=== PATIENT | female | born 1980 | race Caucasian/White ===

== ENCOUNTER → 2018-06-25 11:31 | Outpatient (CLI) | payer OTHER, SELFPAY | PROVIDERS: PCP Internal Medicine | DX: Z23 Encounter for immunization (principal) | CPT/HCPCS: 90471; 90686 ==

== ENCOUNTER → 2018-07-18 10:14 | Outpatient (CLI) | payer OTHER, SELFPAY | PROVIDERS: PCP Internal Medicine; Visit Provider Physician Assistant | DX: N39.0 Urinary tract infection, site not specified (principal) | CPT/HCPCS: 87086 ==

== ENCOUNTER → 2018-09-07 07:11 | Outpatient (CLI) | payer OTHER, SELFPAY ==
[2018-09-07 09:18] LABS: Add Manual Diff / Slide Review NO; Basophils Percent Auto 0.3 % (0-2); Eosinophils Percent Auto 1.5 % (2-4); Hematocrit 38.1 % (36-46); Hemoglobin 13.5 g/dL (12.0-16.0); Lymphocytes Percent Auto 28.2 % (25-40); Mean Corpuscular HGB Conc 35.5 % (30-36); Mean Corpuscular Hemoglobin 32.5 PG (26-34); Mean Corpuscular Volume 91.5 fL (80-100); Monocytes Percent Auto 8.7 % (3-14); Neutrophils Absolute Auto 3200 /uL (3000-5900); Neutrophils Percent Auto 61.3 % (50-75); Platelet Count 287 X10^3/uL (150-400); Red Blood Cell Count 4.16 X10^6/uL (4.0-5.2); Red Cell Distribution Width 12.5 % (11.6-14.8); White Blood Cell Count 5.2 X10^3/uL (4.5-11.0)
[2018-09-07 09:23] LABS: Alanine Aminotransferase 22 IU/L (9-52); Albumin 4.4 g/dL (3.5-5.0); Albumin Globulin Ratio 1.6 (1.0-2.8); Alkaline Phosphatase 58 U/L (38-126); Aspartate Aminotransferase 16 IU/L (14-36); BUN Creatinine Ratio 21.4 (6-22); Bilirubin Total 1.8 mg/dL (0.2-1.3); Blood Urea Nitrogen 15 mg/dL (7-17); Calcium 9.1 mg/dL (8.4-10.2); Carbon Dioxide 24 mmol/L (22-32); Chloride 105 mmol/L (98-107); Cholesterol 172 mg/dL (140-199); Estimated Glomerular Filt Rate > 60.0 mL/min (>60); Globulin 2.7 g/dL (1.7-4.1); Glucose 80 mg/dL (70-100); HDL Cholesterol 45 mg/dL (40-60); HEMOLYSIS < 15 (0-50); LDL Cholesterol Calculated 114 mg/dL (<100); Potassium 3.8 mmol/L (3.4-5.1); Sodium 143 mmol/L (137-145); Total Protein 7.1 g/dL (6.3-8.2); Triglycerides 65 mg/dL (35-150)
[2018-09-07 10:14] LABS: Thyroid Stimulating Hormone 1.35 uIU/mL (0.47-4.68)
== END ==
PROVIDERS: PCP Internal Medicine; Visit Provider Internal Medicine
DX: Z13.0 Encounter for screening for diseases of the blood and blood-forming organs and certain disorders involving the immune mechanism (principal); Z13.220 Encounter for screening for lipoid disorders; Z13.29 Encounter for screening for other suspected endocrine disorder
CPT/HCPCS: 36415; 80053; 80061; 84443; 85025

== ENCOUNTER → 2019-01-04 10:38 | Outpatient (REF) | payer OTHER, SELFPAY ==
[2019-01-04 10:58] LABS: Influenza A and B by PCR Rapid Negative (Negative)
== END ==
LOC: LAB 10:38
PROVIDERS: PCP Internal Medicine; Visit Provider Family Medicine
DX: Z11.59 Encounter for screening for other viral diseases (principal)
CPT/HCPCS: 87400

== ENCOUNTER → 2019-01-28 09:11 | Outpatient (REF) | payer SELFPAY ==
[2019-01-30 14:35] LABS: Hepatitis B Surf AB Imm QUANT > 999 mIU/mL (> 9)
== END ==
LOC: LAB 09:11
PROVIDERS: PCP Internal Medicine
DX: R76.8 Other specified abnormal immunological findings in serum (principal)
CPT/HCPCS: 36415; 86317

== ENCOUNTER → 2019-05-03 08:02 | Outpatient (CLI) | payer OTHER, SELFPAY ==
--- NOTE | 2019-05-03 | DI.US.S_ITS ---
PROCEDURE: US PELVIC COMPLETE INDICATIONS: PELVIC PAIN TECHNIQUE: Real-time scanning was performed of the pelvic organs, with image documentation. Additional endovaginal scanning was necessary due to incomplete visualization of the adnexal and endometrial structures by transabdominal scanning. COMPARISON: None. FINDINGS: Transabdominal scanning: Limited scanning through the kidneys shows no hydronephrosis. No pathologic free abdominal or pelvic fluid. Endovaginal scanning: Uterus: Uterus is normal in size at 9.4 x 5.2 x 6.3 cm. The endometrium measures 3.1 mm in combined thickness. Posterior intramural fibroid measuring 1.4 x 1.5 x 1.7 cm. Ovaries: Left ovary is normal in size and appearance measuring 2.4 x 1.9 x 2.1 cm. Right ovary is enlarged measuring 5.1 x 3.0 x 3.2 cm and contains a complex, or dominant isoechoic mass centrally measuring 2.1 x 1.5 x 1.6 cm. IMPRESSION: 1. Complex right ovarian mass measuring up to 2.1 cm likely representing an evolving hemorrhagic cyst. Recommend short-term followup pelvic ultrasound in 6-12 weeks to document temporal resolution. 2. 17 mm intramural fibroid. Dictated by: Rio LINOA Interpreted: Ayesha Boothe MD on 05/03/2019 at 9:25 Approved by: Ayesha Boothe MD, PhD on 05/03/2019 at 14:20
== END ==
PROVIDERS: PCP Internal Medicine; Visit Provider Family Medicine
DX: D25.1 Intramural leiomyoma of uterus (principal); N83.8 Other noninflammatory disorders of ovary, fallopian tube and broad ligament; R10.2 Pelvic and perineal pain
CPT/HCPCS: 76830; 76856

== ENCOUNTER → 2019-08-13 09:32 | Outpatient (CLI) | payer OTHER, SELFPAY ==
--- NOTE | 2019-08-13 | DI.US.S_ITS ---
PROCEDURE: US PELVIC COMPLETE INDICATIONS: RIGHT OVARIAN CYST TECHNIQUE: Real-time scanning was performed of the pelvic organs, with image documentation. Additional endovaginal scanning was necessary due to incomplete visualization of the adnexal and endometrial structures by transabdominal scanning. COMPARISON: [facility], , US PELVIC COMPLETE, 05/03/2019, 8:12. FINDINGS: Transabdominal scanning: Limited scanning through the kidneys shows no hydronephrosis. No pathologic free abdominal or pelvic fluid. Endovaginal scanning: Uterus: Uterus is normal in size at 9.6 x 6.1 x 4.7 cm. The endometrium measures 11.0 mm in combined thickness. Posterior intramural fibroid redemonstrated measuring up to 18 mm. Ovaries: Ovaries normal in size measuring 3.3 x 3.1 x 2.6 cm on the right and 3.5 x 2.1 x 2.2 cm on the left. Homogeneous, complex mass associated with the right ovary not significantly changed measuring 2.6 x 1.7 x 1.7 cm. Doppler assessment demonstrating no vascularity. Simple left ovarian cyst measuring 17 mm IMPRESSION: 1. No significant change in in appearance or size of homogeneous complex mass involving the right ovary which may represent an endometrioma; however differential would include both benign and malignant etiologies. Recommend gynecologic consultation and continued sonographic surveillance. Dictated by: Rio SMITH Interpreted: Loyda Caba MD on 08/13/2019 at 10:19 Approved by: Loyda Caba M.D. on 08/13/2019 at 12:04
== END ==
PROVIDERS: PCP Internal Medicine; Visit Provider Internal Medicine
DX: N83.9 Noninflammatory disorder of ovary, fallopian tube and broad ligament, unspecified (principal); N83.292 Other ovarian cyst, left side; D25.1 Intramural leiomyoma of uterus
CPT/HCPCS: 76830; 76856

== ENCOUNTER → 2019-09-19 09:48 | Outpatient (CLI) | payer OTHER, SELFPAY | PROVIDERS: PCP Internal Medicine; Visit Provider Physician Assistant | DX: R30.0 Dysuria (principal) | CPT/HCPCS: 87086 ==

== ENCOUNTER → 2019-09-25 11:11 | Outpatient (CLI) | payer OTHER, SELFPAY ==
[2019-09-25 13:12] LABS: Cancer Antigen 125 13 U/mL (0-35)
== END ==
PROVIDERS: PCP Internal Medicine; Visit Provider Obstetrics & Gynecology
DX: N83.8 Other noninflammatory disorders of ovary, fallopian tube and broad ligament (principal)
CPT/HCPCS: 36415; 86304

== ENCOUNTER 2019-10-07 10:07 | Day surgery (SDC) | payer OTHER, SELFPAY ==
[2019-09-27 12:33] VITALS: BMI 26.0
[2019-10-07] VITALS (13 sets, daily range): BP systolic 99–113; BP diastolic 55–70; PULSE 65–96; RESP 12–18; TEMP 36.4–36.6; O2SAT 96–100; BMI 26.6
--- NOTE | 2019-10-07 | PATH_ITS ---
[facility] Accession Number: [id number] . 01 Material submitted: . uterine adnexa - RIGHT OVARY AND FALLOPIAN TUBE; LEFT FALLOPIAN TUBE . 02 Diagnosis: Right Ovary and Fallopian Tube and Left Fallopian Tube, Right Salpingo-oophorectomy and Left Salpingectomy: Right ovary with involvement by endometriosis and with two benign mucinous cysts (2 mm and 5 mm), a benign serous cyst (9 mm) and multiple benign follicular cysts (up to 10 mm in greatest dimension). Right fallopian tube with no significant histomorphologic abnormality; negative for atypia or malignancy. Left fallopian tube with no significant histomorphologic abnormality; negative for atypia or malignancy. [facility] 10/10/2019 1314 Local . 02 Electronically signed: . Dariana Santos MD, Pathologist NPI- [id number] . 01 Gross description: . Received in formalin, labeled right ovary and tube; left tube, is an ovary (3.7 x 3.3 x 1.7 cm) with an attached fimbriated fallopian tube (length-5.5 cm, diameter-0.4 cm) and a separate fimbriated fallopian tube (length-5.3 cm, diameter-0.5 cm). The ovary has robin-yellow smooth shiny flat serosa and robin-white solid cystic parenchyma with corpus albicans and corpus luteum identified. The cavities (0.1 cm-1.0 cm) contain red-brown paste-like material and clear colorless fluid. The fallopian tubes have robin-purple smooth shiny serosa and robin unremarkable lumens. Section code: (A1) ovary, international sales representative serial section; (A2) attached fallopian tube, international sales representative serial sections; (A3) attached fimbria, bivalved, entirely submitted; (A4) separate fallopian tube, international sales representative serial sections; (A5) separate fimbria, bivalved, entirely submitted. ([id number]) /MRV 10/08/2019 1350 Local . 02 Pathologist provided ICD-10: N83.8 . 02 CPT . 448082 Performed at: [facility] [address] [address], [place], [place] [id number] MD Deshaun River MD Phone: [phone] Performed at: [address] [facility] [id number] [place] [id number] MD Cathryn Patterson MD Phone: [phone]
[2019-10-07] MEDS: LACTATED RINGERS 1,000 ML 100 ML IV ×2 (11:00→13:41)
--- NOTE | 2019-10-07 12:50 | PM.PREOP ---
Pre-operative Note Interval Note History & Physical reviewed/Exam performed by Physician: Yes Changes to H&P: No
--- NOTE | 2019-10-07 13:23 | SUR.OPER ---
Lithotomy on padded OR bed, head on pillow, arms secured on padded arm boards at <90 degrees abduction. Legs secured in padded yellow fins stirrups.
[2019-10-07] MEDS: BUPIVACAINE 0.5% W/ EPI (PF) 30 ML VIAL INJ (13:30)
--- NOTE | 2019-10-07 14:40 | SUR.PHASEI ---
Patient awakens to voice. Tolerates po. VSS. Denies pain and nausea.
--- NOTE | 2019-10-08 05:05 | PM.HP.1 ---
History of Present Illness History of Present Illness Date Patient Seen: 10/07/19 Time Patient Seen: 12:00 Chief complaint: [id number] Narrative: Patient is a 39-year-old 2 para 2 who presents for a laparoscopic bilateral salpingectomy, excision of right ovarian mass, possible right oophorectomy, possible fulguration of endometriosis This is being done due to a right ovarian mass, menorrhagia, and dysmenorrhea Patient History Medical History (Updated 10/08/19 @ 05:07 by Jyoti Lopes MD) Anemia (Acute) Dysmenorrhea (Acute) Menorrhagia (Acute) Otitis media, serous, TM rupture (Acute) UTI (urinary tract infection) (Acute) Surgical History (Updated 09/27/19 @ 12:42 by Renetta Feliciano RN) History of surgery (Acute ~08/2005) Hx of appendectomy (Acute ~2006) Status post appendectomy Family & Social History Family History (Updated 08/16/15 @ 00:00 by Conversion Provider) Father Cancer Grandfather Heart disease Grandmother Heart disease Mother Age: 71 Diabetes mellitus Hypertension High cholesterol Mental health problem Grandfather Heart disease Grandmother Stroke Social History: household members spouse Tobacco & Substance use: Smoking Status Never smoker alcohol intake current alcohol intake frequency a few times a week Substance Use Type does not use Meds Home Medications and Allergies Home Medications Medication Instructions Recorded Confirmed Type Vitamin D3 4,000 u PO DAILY #0 09/28/16 10/07/19 History ketoconazole 2 % topical cream 1 applictn TOP BID #60 gram 09/11/18 10/07/19 Rx escitalopram oxalate 5 mg tablet 5 mg PO DAILY 09/19/19 10/07/19 History omega-3 fatty acids PO 09/25/19 09/25/19 History tramadol 50 mg PO Q4H PRN #14 tab 10/07/19 Rx Allergies Allergy/AdvReac Type Severity Reaction Status Date / Time latex [LATEX] Allergy Mild Rash Verified 10/07/19 10:54 oxycodone [From PERCOCET] Allergy Mild hives, Verified 10/07/19 10:54 itching Sulfa (Sulfonamide Allergy Mild Rash Verified 10/07/19 13:35 Antibiotics) Exam Vital Signs (past 8 hours): Oxygen Delivery Method Room Air Narrative Exam Narrative: HEENT: No thyromegaly, no anterior cervical or supraclavicular lymphadenopathy. Lungs:Clear to auscultation bilaterally, no wheezes. Cardiovascular: Regular rate and rhythm, no murmurs, rubs, or gallops. Abdomen: No scars. No hepatosplenomegaly. No masses palpable. External genitalia: Normal Vagina: Normal Cervix: Normal Bimanual exam: 8 Week size uterus. Mobile. Right adnexal tenderness. Bilateral uterus sacral tenderness. Rectal: No masses. Assessment & Plan Assessment and plan (1) Menorrhagia: Current visit: No Status: Acute (2) Dysmenorrhea: Current visit: No Status: Acute (3) Ovarian mass, right: Current visit: No Status: Deleted (4) Ovarian mass, right: Current visit: No Status: Acute Assessment & Plan narrative: Assessment: 39-year-old 2 para 2 with a right ovarian mass, dysmenorrhea, and menorrhagia Plan: Laparoscopic bilateral salpingectomy, excision of right ovarian mass, possible removal of right ovary, possible fulguration of endometriosis The risks, benefits, and alternatives to the procedure were explained to the patient. The risks including bleeding, infection, injury to the bowel, bladder, or ureters. She also understands that there is a risk of an open procedure. She understands these risks and agrees to proceed. A full par Q was held and consent form was signed. Time Spent With Patient Time with patient: 15-24 minutes
--- NOTE | 2019-10-08 05:08 | PM.GYNOP.1 ---
Operative Date/Time/Diagnoses Date of procedure: 10/07/19 Time of procedure: 14:00 Pre-op diagnosis: Menorrhagia Dysmenorrhea Right ovarian mass Post-op diagnosis: same Procedure & Clinicians Procedure: Procedures Operation Date: 10/07/19 12:15 Actual Procedures Side Surgeon p Laparoscopic Right Salpingectomy oophorectomy; left salpingectomy & fulguration of endometriosis Jyoti Lopes MD Indications: Dysmenorrhea Menorrhagia Right ovarian mass Surgeon: Jyoti Lopes Anesthesia Type: General Operative Notes Findings: Significant endometriosis of the right ovary including an endometrioma. Endometriosis of the left ovary, anterior cul-de-sac, posterior cul-de-sac, bilateral ovarian fossa, and anterior bowel, and right cornua of the uterus. Normal liver Appendix previously removed Normal uterus Closure Type: primary Specimen(s): left tube and right tube & ovary Estimated blood loss (mL): 5 Blood products transfused: none Procedure in detail: After informed consent was obtained, the patient was taken to the operating room where she was placed in the dorsal supine position. After adequate general endotracheal anesthesia was achieved, she was placed in the dorsal lithotomy position, and prepped and draped in the usual sterile fashion. A bivalve speculum was placed into the vagina and the anterior lip of the cervix was grasped with a single-tooth tenaculum. The cervical os was sequentially dilated until the Zumi uterine manipulator could pass easily into the endometrial cavity. The single-tooth tenaculum was removed from the anterior lip of the cervix. The bivalve speculum was removed from the vagina. Attention was then turned to the abdomen where 6 cc of 0.5% Marcaine with epinephrine were injected in the umbilical fold. A 5 mm incision was made. The Veress needle was placed into the peritoneal cavity, and its placement confirmed by aspiration drop test. The abdominal cavity was insufflated with 3.8 L of CO2. The Veress needle was removed, and a 5 mm trocar was placed without difficulty. Two other 5 mm incisions were made midway between the pubic symphysis and umbilicus, 4 cm lateral to the midline, after 6 cc of 0.5% Marcaine with epinephrine were injected. Two 5 mm trocars were placed under direct visualization. The probe was used to identify the anterior posterior cul-de-sacs, the bilateral ovarian fossa, and the liver. The spoon cautery was used to cauterize approximately 100 endometriosis lesions of the anterior and posterior cul-de-sac, bilateral ovarian fossa, and left ovary. A decision was made due to the degree of endometriosis on the right ovary to remove it. The right ovary and tube were grasped with an atraumatic grasper. Using the PlasmaKinetic was settings of 40 w the infundibulopelvic ligament was cauterized and cut as was the utero-ovarian ligament. The tube was amputated at the cornua of the uterus. The tube and ovary were placed into the anterior cul-de-sac. The left tube was grasped with an atraumatic grasper. Using the PlasmaKinetic was settings at 40 w the mesosalpinx was cauterized and cut all the way down to the cornua of the uterus. The tube was amputated at the cornua. The tube was placed into the anterior cul-de-sac. Hemostasis was achieved. 6 cc of 0.5% Marcaine with epinephrine were injected above the pubic symphysis. A 1 cm incision was made. The 11 mm trocar was placed into the peritoneal cavity. The small endobag was placed through the suprapubic trocar. The right ovary and tube and left tube were placed into the bag. The trocar was removed. A Marty was used to slightly extend the fascial incision. The bag was removed with tubes and right ovary inside. The pelvis was inspected and there was no bleeding noted. The instruments were removed from the abdomen. The CO2 was allowed to escape. The suprapubic incision was closed on the fascia with 0 Vicryl. All of the incisions were closed with 4 0 Biosyn in a subcuticular fashion. Steri-Strips, 2 x 2, and op site were placed. The Zumi uterine manipulator was removed from the uterus. Sponge, lap, and instrument counts were correct x2. The patient tolerated the procedure well, and was taken to PACU in stable condition. Complications: none Post-operative Condition: stable Disposition: PACU Plan for aftercare: Home after recovery
== END 2019-10-07 15:57 | disposition home or self-care (01) ==
PROVIDERS: PCP Internal Medicine; Visit Provider Obstetrics & Gynecology
PROC: (CPT 58661; principal; 2019-10-07 12:15)
DX: N83.8 Other noninflammatory disorders of ovary, fallopian tube and broad ligament (principal); F41.9 Anxiety disorder, unspecified; N83.291 Other ovarian cyst, right side; N83.201 Unspecified ovarian cyst, right side; N83.01 Follicular cyst of right ovary
CPT/HCPCS: 58661; 58662; J1100; J1885; J2250; J2405; J2704; J3010

== ENCOUNTER → 2020-01-15 11:00 | Oncology outpatient (ONC) | payer OTHER, SELFPAY ==
[2019-10-16 11:06] VITALS: BP 109/68; PULSE 68; RESP 16; TEMP 36.7; O2SAT 100
[2019-10-16] MEDS: LEUPROLIDE DEPOT 11.25 MG SYR IM (11:11)
[2020-01-15] MEDS: LEUPROLIDE DEPOT 11.25 MG SYR IM (11:33)
[2020-01-15 11:53] VITALS: BP 102/67; PULSE 78; RESP 18; TEMP 36.6; O2SAT 96
== END ==
PROVIDERS: PCP Internal Medicine; Visit Provider Obstetrics & Gynecology
DX: N80.9 Endometriosis, unspecified (principal)
CPT/HCPCS: 96372; J1950

== ENCOUNTER → 2020-04-15 13:53 | Outpatient (CLI) | payer OTHER, SELFPAY ==
[2020-04-16 20:01] LABS: COVID19 Sendout Not Detected (Not Detect)
== END ==
PROVIDERS: PCP Internal Medicine; Visit Provider Physician Assistant
DX: Z03.818 Encounter for observation for suspected exposure to other biological agents ruled out (principal)
CPT/HCPCS: 87635

== ENCOUNTER → 2020-07-21 07:41 | Outpatient (CLI) | payer OTHER, SELFPAY | PROVIDERS: PCP Internal Medicine; Referring Provider Internal Medicine; Visit Provider Internal Medicine | DX: Z23 Encounter for immunization (principal) | CPT/HCPCS: 90471; 90686 ==

== ENCOUNTER → 2020-08-18 10:20 | Outpatient (CLI) | payer OTHER, SELFPAY ==
[2020-08-18 11:36] LABS: COVID19 -Nasal RAPID Negative (Negative)
== END ==
PROVIDERS: PCP Internal Medicine; Visit Provider Surgery
DX: Z11.59 Encounter for screening for other viral diseases (principal)
CPT/HCPCS: 87635; C9803

== ENCOUNTER 2020-08-19 15:21 | Day surgery (SDC) | payer OTHER, SELFPAY ==
[2020-08-13 12:30] VITALS: BMI 26.6
[2020-08-19] VITALS (7 sets, daily range): BP systolic 94–109; BP diastolic 51–69; PULSE 65–106; RESP 10–19; TEMP 36.5–36.6; O2SAT 98–100; BMI 27.4
--- NOTE | 2020-08-19 | PATH_ITS ---
[facility] Accession Number: [id number] . 01 Material submitted: . hemorrhoids - HEMORRHOIDS . 01 Clinical history: . SDC . 02 Diagnosis: Hemorrhoids, Biopsy: Polypoid anorectal mucosa with prominent dilated vessels, consistent with hemorrhoidal tissue. No evidence of neoplasia. MRV 08/24/2020 1244 Local . 02 Electronically signed: . Cathryn Patterson MD, Pathologist NPI- [id number] . 01 Gross description: . HEMORRHOIDS: Received in formalin are multiple fragment of robin soft tissue measuring 2.0 x 1.0 x 1.0 cm in aggregate. Tissue is inked. Specimen is sectioned and submitted in phone representative sections in 1 cassette. /SHAVONNE 08/20/2020 0146 Local . 02 Pathologist provided ICD-10: K64.9 . 02 CPT . 283291 Performed at: 01 [facility] [address], [place], [place] [id number] MD Deshaun River MD Phone: [phone] Performed at: 02 [facility] [address] [place], [place] [id number] MD Cathryn Patterson MD Phone: [phone]
[2020-08-19] MEDS: LACTATED RINGERS 1,000 ML 100 ML IV (15:58)
--- NOTE | 2020-08-19 16:33 | PM.PREOP ---
Pre-operative Note COVID-19 COVID-19 status: Negative Result date/Date tested (Pos, Neg/Pending): 08/18/20 Interval Note History & Physical reviewed/Exam performed by Physician: Yes Changes to H&P: No
[2020-08-19] MEDS: CEFAZOLIN 2 GM/100 ML FROZ.PIGGY IV (16:40)
--- NOTE | 2020-08-19 16:59 | SUR.OPER ---
Prone on padded OR bed, head in foam head support, gel chest rolls, gel pad under knees, pillow under lower legs, toes free of pressure, arms secured on padded arm boards at <90 degrees abduction. Safety belt at thigh.
[2020-08-19] MEDS: metroNIDAZOLE 500 MG/100 ML PIGGYBACK 100 MG IV ×2 (17:05→17:18)
[2020-08-19] MEDS: BUPIVACAINE LIPOSOME 266 MG/20 ML VIAL INJ (17:20)
[2020-08-19] MEDS: BUPIVACAINE 0.25% W/ EPI (PF) 10 ML VIAL 20 ML INJ (17:23)
--- NOTE | 2020-08-19 17:35 | PM.OP.1 ---
Operative Date/Time/Diagnoses Date of procedure: 08/19/20 Time of procedure: 17:35 Pre-op diagnosis: Hemorrhoids, high anal tone, anal pain Post-op diagnosis: other (circumferential internal and external hemorrhoids) Procedure & Clinicians Procedure: Hemorrhoidectomy Internal lateral sphincterotomy Same procedure as scheduled: Yes Indications: Circumferential hemorrhoids, anal pain Surgeon: Estefani Mata Anesthesia Type: General Operative Notes Findings: Circumferential hemorrhoids, high anal sphincter tone Specimen(s): other (Hemorrhoids) Estimated Blood Loss (mL): 1 Procedure in detail: The patient was brought into the OR. Sequential compression devices were placed on both legs and turned on. Appropriate perioperative antibiotics were given. General anesthesia was induced and the patient was intubated. The patient was turned prone onto the OR table. All bony prominences were padded. The buttocks were taped apart. The perianal area was prepped and draped in sterile fashion with betadine prep. Surgical timeout was conducted. 0.25% Marcaine with epi was used to perform a four quadrant anal block using 5mL per quadrant for a total of 20mL. On external exam there were [moderate circumferential external hemorrhoids seen with very friable anal mucosa and anoderm. With copious lubricant, an anorectal exam was performed. Moderate internal hemorrhoids were seen circumferentially associated with each external hemorrhoid. The right posterior external hemorrhoid was grasped and divided at its base using Harmonic scalpel. Dissection was carried down to the internal hemorrhoid component, proximal to the dentate line and a Harmonic scalpel was used to divide it, with care to avoid the sphincter muscle. The entire hemorrhoidal column was divided including both the internal and external hemorrhoid. It was passed off the table. Good hemostasis was achieved. The right anterior external hemorrhoid was grasped and divided at its base using Harmonic scalpel. Dissection was carried down to the internal hemorrhoid component, proximal to the dentate line and a Harmonic scalpel was used to divide it, with care to avoid the sphincter muscle. The entire hemorrhoidal column was divided including both the internal and external hemorrhoid. It was passed off the table. Good hemostasis was achieved. Care was taken to leave plenty of anoderm between each hemorrhoidal column. The left lateral external hemorrhoidThe was grasped and divided at its base using Harmonic scalpel. Dissection was carried down to the internal hemorrhoid component, proximal to the dentate line and a Harmonic scalpel was used to divide it, with care to avoid the sphincter muscle. The entire hemorrhoidal column was divided including both the internal and external hemorrhoid. It was passed off the table. Good hemostasis was achieved. Care was taken to leave plenty of anoderm between each hemorrhoidal column. Attention was then turned to the left lateral anoderm at 9:00 position. A small skin incision was made overlying the anal sphincter muscle. The skin was opened and dissection was carried down to the anal sphincter using a mosquito clamp. The internal sphincter was located and 3mm of muscle was divided, consistent with the length of the fissure. The anoderm was closed with 4-0 chromic suture. 20mL of Exparel was used to inject the anoderm and anal canal circumferentially 2-3mL per cm. A large Gelfoam was then coated and rolled with Dibucaine and placed in the anal canal. A thick layer of Dibucaine was used to coat the anoderm. A stack of 4x4 gauze was then used to cover the anal opening and secured in place with medipore tape. The patient was transferred onto her hospital bed into supine position. She was then awakened from anesthesia and extubated. Needle, sponge, and instrument counts were correct x 2. The patient was transferred to the PACU in stable condition. Complications: none Post-operative Condition: stable Disposition: PACU
[2020-08-19] MEDS: ONDANSETRON 4 MG/2 ML INJ IV (18:07)
--- NOTE | 2020-08-19 18:44 | SUR.PHASEII ---
Dr Mata by to speak with pt, pt up and ambulating gait steady, iv dcd and site clear.
--- NOTE | 2020-08-19 18:45 | SUR.PHASEII ---
all dc instructions given to pt and pt verbalizes understanding. at bs now with pt getting dressed.
--- NOTE | 2020-08-19 18:48 | SUR.PHASEII ---
Pt wheeled out in stable condition by Sameera
== END 2020-08-19 18:50 | disposition home or self-care (01) ==
PROVIDERS: PCP Internal Medicine; Referring Provider Internal Medicine; Visit Provider Surgery
PROC: (CPT 46260; principal; 2020-08-19 15:45)
DX: K64.1 Second degree hemorrhoids (principal); K64.4 Residual hemorrhoidal skin tags; K60.2 Anal fissure, unspecified; F41.9 Anxiety disorder, unspecified
CPT/HCPCS: 46260; C9290; J0690; J2250; J2405; J2704; J3010

== ENCOUNTER → 2020-08-30 09:54 | Outpatient (CLI) | payer OTHER, SELFPAY | PROVIDERS: PCP Internal Medicine; Visit Provider Physician Assistant | DX: R30.0 Dysuria (principal) | CPT/HCPCS: 87086 ==

== ENCOUNTER → 2020-10-14 13:03 | Outpatient (CLI) | payer OTHER, SELFPAY ==
[2020-10-14] MEDS: COVID-19 VACC(MODERNA-1)/PF 100 MCG/0.5 ML VIAL IM (13:06)
== END ==
PROVIDERS: PCP Internal Medicine; Visit Provider Internal Medicine
DX: Z23 Encounter for immunization (principal)
CPT/HCPCS: 0011A; 91301

== ENCOUNTER → 2020-11-10 10:53 | Outpatient (CLI) | payer OTHER, SELFPAY ==
[2020-11-10] MEDS: COVID-19 VACC #2, MRNA(MOD) 100 MCG/0.5 ML VIAL IM (10:58)
== END ==
PROVIDERS: PCP Internal Medicine; Visit Provider Internal Medicine
DX: Z23 Encounter for immunization (principal)
CPT/HCPCS: 0012A; 91301

== ENCOUNTER → 2021-07-15 | Outpatient (CLI) | payer OTHER, SELFPAY | PROVIDERS: PCP Internal Medicine; Referring Provider Internal Medicine; Visit Provider Internal Medicine | DX: Z23 Encounter for immunization (principal) | CPT/HCPCS: 90471; 90686 ==

== ENCOUNTER → 2021-08-16 10:54 | Outpatient (CLI) | payer OTHER, SELFPAY ==
[2021-08-16 14:28] LABS: COVID19 -Nasal RAPID Negative (Negative)
== END ==
PROVIDERS: PCP Internal Medicine; Referring Provider Obstetrics & Gynecology; Visit Provider Obstetrics & Gynecology
DX: Z20.822 Contact with and (suspected) exposure to COVID-19 (principal); Z01.812 Encounter for preprocedural laboratory examination
CPT/HCPCS: 87635

== ENCOUNTER 2021-08-17 06:21 | Day surgery (SDC) | payer OTHER, SELFPAY ==
[2021-08-13 09:10] VITALS: BMI 28.3
[2021-08-17] VITALS (9 sets, daily range): BP systolic 96–114; BP diastolic 44–72; PULSE 77–107; RESP 12–28; TEMP 36.2–37.2; O2SAT 91–100; BMI 28.3
--- NOTE | 2021-08-17 | PATH_ITS ---
[facility] Accession Number: [id number] . 01 Material submitted: . uterus - UTERUS AND LEFT OVARY . 02 Diagnosis: Designated as Uterus and Left Ovary, Hysterectomy and Left Oophorectomy: Late secretory phase endometrium with breakdown. Myometrium with leiomyoma (0.3 cm). Left ovary with hemorrhagic corpus luteal cyst, physiologic cysts, and focal hematoidin/hemosiderin-laden macrophages with giant cell reaction. No evidence of endometrioid intraepithelial neoplasia, ovarian borderline tumor, or malignancy. MRV 08/19/2021 1713 Local . 02 Electronically signed: . Yoli Ruiz MD, Pathologist NPI- [id number] . 01 Gross description: . The specimen is received in formalin, labeled uterus and left ovary and consists of a 105-gram morcellated uterus measuring 12.0 x 11.5 x 3.9 cm in aggregate. The serosa is robin-pink and smooth. No cervix is identified. Sectioning reveals a robin-pink endometrium measuring 0.1 cm in thickness. The myometrium is robin-pink and trabeculated with a 0.3 x 0.3 x 0.3 cm robin-white whorled leiomyoma. Also received is a 6.0-gram, 3.0 x 2.0 x 1.2 cm ovary with a robin disrupted external surface. Sectioning reveals multiple yellow-tinged serous-filled cysts ranging from 0.3-1.2 cm. Typewriter Assembler sections are submitted. . A1-A3: Typewriter Assembler uterus and leiomyoma. A4-A5: Typewriter Assembler ovary. ([id number]) /MRV 08/18/2021 1157 Local . 02 Pathologist provided ICD-10: N80.9, N83.209 . 02 CPT . 554441 Performed at: 01 [facility] [address] [address], [place], [place] [id number] MD Deshaun River MD Phone: [phone] Performed at: [facility] [address] [place], [place] [id number] MD Cathryn Patterson MD Phone: [phone]
[2021-08-17] MEDS: LACTATED RINGERS 1,000 ML 100 ML IV ×2 (07:15→09:49)
--- NOTE | 2021-08-17 07:56 | PM.PREOP ---
Pre-operative Note COVID-19 COVID-19 status: Negative Result date/Date tested (Pos, Neg/Pending): 08/16/21 Interval Note History & Physical reviewed/Exam performed by Physician: Yes Changes to H&P: No H&P completed within 30 days and has changed as indicated here:: 08/16/21
[2021-08-17] MEDS: CEFAZOLIN 1 GM VIAL 2 GM IV (08:10)
--- NOTE | 2021-08-17 08:37 | SUR.OPER ---
Lithotomy on padded OR bed. [place] Pad Positioner under torso. Head on pillow, arms padded and tucked at sides. Legs secured in padded yellow fins stirrups.
[2021-08-17] MEDS: EPINEPHrine 1 MG/ML 0.15 MG INJ (08:50)
[2021-08-17] MEDS: BUPIVACAINE 0.5% (PF) VIAL 30 ML INJ (08:51)
[2021-08-17] MEDS: ACETAMINOPHEN IV 1,000 MG/100 ML VIAL 400 MG IV (08:52)
--- NOTE | 2021-08-17 09:52 | PM.GYNOP.1 ---
Operative Date/Time/Diagnoses Date of procedure: 08/17/21 Time of procedure: 09:52 Pre-op diagnosis: Recurrent endometriosis Dysmenorrhea Left ovarian cyst Post-op diagnosis: same Procedure & Clinicians Procedure: Procedures Operation Date: 08/17/21 07:45 Actual Procedure Side Surgeon p Laparoscopic Supracervical Hysterectomy w/ Left Oophorectomy Jyoti Lopes MD Indications: Recurrent endometriosis Dysmenorrhea Left ovarian cyst Surgeon: Jyoti Lopes Beam House Inspector: Kelly Yates Anesthesia Type: General and Local Operative Notes Findings: 7 week size anteverted uterus Left ovary with 1.5 cm ovarian cyst Normal liver Endometriotic implants in the anterior cul-de-sac as well as both ovarian fossa Closure Type: primary Specimen(s): uterus and other ( left ovary) Applied: catheter ( latex free, removed at the end of the case) Estimated blood loss (mL): 50 Blood products transfused: none Procedure in detail: The patient was taken to the operating room where she was placed in the dorsal supine position. After adequate general endotracheal anesthesia was achieved, she was placed in the dorsal lithotomy position, and prepped and draped in the usual sterile fashion. A timeout was performed. A bivalve speculum was placed into the vagina and the anterior lip of the cervix grasped with a single-tooth tenaculum. The cervical os was sequentially dilated until the ZUMI uterine manipulator could pass easily into the endometrial cavity. The single-tooth tenaculum was removed from the anterior lip of the cervix, and the bivalve speculum was removed from the vagina. Attention was then turned to the abdomen where 6 mL of half percent Marcaine with epinephrine were injected in the umbilical fold. A 5 mm incision was made. The Veress needle was placed into the peritoneal cavity, and its placement confirmed by aspiration and drop test. The Veress needle was removed. A 5 mm trocar was placed without difficulty. 2 other incisions were made lateral to the umbilicus after 5 mL of half percent Marcaine with epinephrine were injected. These were 5 mm incisions. Two, 5 mm trochars were placed under direct visualization. The left ovary was grasped with an atraumatic grasper. Using the plasma kinetic with settings of 40 W the infundibulopelvic ligament was cauterized and cut. Hemostasis was achieved. The cornua of the uterus was then grasped with an atraumatic grasper. The round ligament and broad ligament were cauterized and cut with plasma kinetic. Hemostasis was achieved. The bladder flap was created half way across. The uterine arteries on the left side were cauterized and cut. Hemostasis was achieved. On the right side, the cornua was grasped with an atraumatic grasper, and the broad ligament and round ligament were cauterized and cut. The bladder flap was created using the plasma kinetic with cautery and cut mcc across. The uterine arteries on the right side were extensively cauterized with plasma kinetic. The remainder of the bladder flap was created using the plasma kinetic, and the bladder taken down off the lower uterine segment and cervix. Using the Linaloop, the cervix was amputated from the uterus 2 cm above the uterosacral ligaments, after the ZUMI uterine manipulator was removed from the uterus and a moistened sponge stick was placed in the vagina. There was a small amount of bleeding noted from the left edge of the cervix, and this was cauterized for hemostasis. The endocervical canal was extensively cauterized with the PK. 6 mL of half percent Marcaine with epinephrine were injected above the pubic symphysis. A 12mm incision was made. A 12 mm trocar was placed under direct visualization. The trochar was removed. An Endobag was placed through the suprapubic incision and the uterus placed into the Endobag. An Merrill was placed into the Endobag. The uterus was morcellated in approximately 15 pieces. The left ovary was also removed from the Endobag. The Endobag was removed from the peritoneal cavity with the Merrill. The pelvis was copiously irrigated with warm normal saline. No bleeding was noted. 20 mL of 0.2% ropivacaine were placed over the pelvic pedicles. The instruments were removed from the abdomen. The CO2 was allowed to escape. The suprapubic incision was closed on the fascia with 0 Vicryl. 2 simple interrupted sutures were placed in the subcutaneous layer to reapproximate. All of the incisions were closed with 4-0 Biosyn in a subcuticular fashion. Steri strips, 2x2's and Allevyn dressings were placed over the incisions. The moistened sponge stick was removed from the vagina. Sponge, lap, and instrument counts were correct x 2. The patient tolerated the procedure well, was taken to PACU in stable condition. Complications: none Post-operative Condition: stable Disposition: PACU Plan for aftercare: Home after recovery
[2021-08-17] MEDS: HYDROMORPHONE 2 MG TABLET PO (10:03)
--- NOTE | 2021-08-17 10:05 | SUR.PHASEII ---
Pain rated 6/10, medicated with Dilaudid after applesauce tolerated.
--- NOTE | 2021-08-17 10:51 | SUR.PHASEII ---
Up to BR, steady when up, could niot void, back to bed. Stated pain tolerated. Tolerates po fluids and snack.
--- NOTE | 2021-08-17 14:05 | SUR.PHASEII ---
Late entry: Pt got up 2nd time to void, PRV only 25mls per bladder scanner. Dressing remained c/d/i. pain down to 2/10. pt instructed on doing ankle pumps, and deep breathing. Pt also voided 2nd time before leaving unit. HR slightly over 100beats/min, pt aware, denied SOB or chest pain, stated she will keep an eye one her HR at home. Pt left when ready and left in stable condition.
--- NOTE | 2021-08-17 19:56 | P.PCNOB_ITS ---
Events: Gestational Diabetes (diet ), Induced HTN, Labor Induction and Other (cholestasis) Labor & Delivery Delivery date: 08/17/21 Intrapartal Events: None Cervical ripening method: none Induction method: per pitocin protocol Delivery augmentation: rupture of membranes Delivery monitor: external FHT and external uterine Route of delivery: Episiotomy description: None L&D Laceration Description: Periurethral - 1st Degree Delivery repair: chromic (4-0) Estimated blood loss (mL): 50 Anesthesia Type: Epidural Complications: None Narrative: Patient complete and pushed for 30 minutes. At 7:30 p.m., a live male delivered spontaneously in the APOLLO presentation. No nuchal cord. The remainder of the body delivered without difficulty and was placed on mom's abdomen. There was found to be a brisk bleeder around the urethra and pressure was held. After the cord stopped pulsing, the cord was double clamped and cut. Cord bloods were obtained. Pitocin was given in the IV fluids. The placenta delivered intact with a three-vessel cord at 7:35 p.m.. The fundus was massaged to firm. There was a periurethral tear that was repaired with a running suture with 4 0 chromic. Hemostasis was achieved. A Villafana catheter was placed for overnight. Apgars 7 at 1 minute and 9 at 5 minutes. Estimated blood loss 50 cc. Epidural analgesia. . Mom and infant stable to recovery. Baby was noted to have a possible [place] spot on the left cheek. Baby 1: gender: Male Presentation: vertex Position: Left Occiput Anterior Placenta delivery description: Spontaneous Cord Vessel Description: 3 Vessels score (1 min): 7 score (5 min): 9 Plan for aftercare: Routine care
== END 2021-08-17 11:15 | disposition home or self-care (01) ==
PROVIDERS: PCP Internal Medicine; Referring Provider Obstetrics & Gynecology; Visit Provider Obstetrics & Gynecology
PROC: 0UT94ZL Resection of Uterus, Supracervical, Percutaneous Endoscopic Approach (ICD-10-PCS; CPT 58542; principal; 2021-08-17 07:45)
DX: N80.3 Endometriosis of pelvic peritoneum (principal); N83.12 Corpus luteum cyst of left ovary
CPT/HCPCS: 58542; J0131; J0171; J0690; J1100; J1885; J2250; J2405; J2704; J3010

== ENCOUNTER → 2021-08-27 09:02 | Outpatient (CLI) | payer OTHER, SELFPAY ==
[2021-08-27] MEDS: COVID-19 VACC #3, MRNA(MOD) 50 MCG/0.25 ML VIAL IM (09:06)
== END ==
PROVIDERS: PCP Internal Medicine; Visit Provider Internal Medicine
DX: Z23 Encounter for immunization (principal)
CPT/HCPCS: 0013A; 91301

== ENCOUNTER 2021-09-02 22:58 | Emergency (ER) | payer OTHER, SELFPAY ==
[2021-09-02 23:25] VITALS: BP 109/69; PULSE 81; RESP 15; TEMP 37.1; O2SAT 98; BMI 27.8
--- NOTE | 2021-09-02 23:59 | ED_ITS ---
HPI - Abdominal Pain General Chief Complaint: Abdominal Pain Stated Complaint: abd painx 2 days, post hysterectomy Time Seen by Provider: 09/02/21 23:50 Source: patient Mode of arrival: Ambulatory Limitations: no limitations History of Present Illness HPI narrative: Patient is a 41-year-old female who presents after hysterectomy on August 17. She says she actually has been doing well since her surgery and pain has overall improved. However the last few days she has had some left flank pain radiating down into her vagina area. She actually thought she was constipated she took a stool softener she has had multiple bowel movements since then no longer constipated. She has no prior history of kidney stone. She denies any nausea vomiting or fevers. She has no blood in her urine or painful frequent urination. Related Data Home Medications Medication Instructions Recorded Confirmed cholecalciferol (vitamin D3) 100 4,000 u PO DAILY #0 09/28/16 08/31/21 mcg (4,000 unit) capsule (Vitamin D3) omega 2-ogh-zmx-fish oil 1,000 mg 1 cap PO DAILY 08/13/20 08/31/21 (120 mg-180 mg) capsule (Fish Oil) L.acidoph, paracasei,B. lactis 1 PO DAILY 08/16/21 08/31/21 [Digestive Advantage Advanced] fluoxetine 10 mg capsule (Prozac) 30 mg PO DAILY 08/16/21 08/31/21 Previous Rx's Medication Instructions Recorded tramadol 50 mg tablet 50 mg PO Q4H PRN #20 tab 08/17/21 Allergies Allergy/AdvReac Type Severity Reaction Status Date / Time latex [LATEX] Allergy Mild Rash Verified 08/31/21 14:13 oxycodone [From PERCOCET] Allergy Mild hives, Verified 08/31/21 14:13 itching Sulfa (Sulfonamide Allergy Mild Rash Verified 08/31/21 14:13 Antibiotics) Review of Systems Review of Systems Narrative: GENERAL: Denies chills, fatigue, malaise, fever, sweats, travel HEENT: Denies sinus pain, ear pain, sore throat, difficulty swallowing, neck pain RESPIRATORY: Denies dyspnea, cough, wheezing, hemoptysis, sputum. CARDIOVASCULAR: Denies chest pain, palpitations, orthopnea, edema GASTROINTESTINAL: See HPI : Denies dysuria, frequency, incontinence, hematuria, urinary retention, flank pain. MUSCULOSKELETAL: Denies weakness, joint pain, or bony pain SKIN: No rash, no erythema, no pruritus NEUROLOGIC: Denies weakness, dizziness, headache, numbness, change in speech, confusion PSYCHIATRIC: No concerning psychosocial issues. 12 point review of systems is negative except for those stated above and HPI Patient History Medical History (Updated 09/03/21 @ 02:03 by Mariela Wilde DO) Anemia Cystitis Dysmenorrhea Menorrhagia Otitis media, serous, TM rupture UTI (urinary tract infection) Surgical History (Updated 08/13/21 @ 10:09 by Renetta Feliciano RN) History of surgery (~08/2005) History of surgery (05/2013) Hx of appendectomy (~2006) Hx of bilateral salpingectomy (10/07/19) Hx of hemorrhoidectomy (08/19/20) Family History Father Cancer Grandfather Heart disease Grandmother Heart disease Mother Age: 73 Diabetes mellitus Hypertension High cholesterol Mental health problem Grandfather Heart disease Grandmother Stroke Social History household members: spouse and children Smoking Status: Never smoker alcohol intake: current Smoking Status: Never smoker alcohol intake frequency: a few times a week Substance Use Type: does not use Exam Initial Vital Signs Initial Vital Signs: Vital Signs Temperature 98.7 F 09/02/21 23:25 Pulse Rate 81 09/02/21 23:25 Respiratory Rate 15 09/02/21 23:25 Blood Pressure 109/69 09/02/21 23:25 Pulse Oximetry 98 09/02/21 23:25 GENERAL: Alert oriented year old femaleand in no acute distress. HEENT: Head atraumatic,EOMI, pupils reactive, face symmetric, moist mucous membranes CARDIOVASCULAR: Regular rate and rhythm without murmurs, rubs or gallops. RESPIRATORY: Breath sounds equal bilaterally, no wheezes rales or rhonchi. ABDOMEN: Soft, nontender. Normoactive bowel sounds all 4 quadrants. No g uarding or rebound. : Mild left CVA tenderness EXTREMITIES: Normal range of motion, no clubbing or edema. Neurovascularly intact NEUROLOGICAL: Alert and oriented x4.Normal gait and speech. SKIN: Warm, dry, no laceration, no petechiae, no rashes or lesions. Course Orders Ordered: ED Orders 09/02/21 23:37 Complete Blood Count AUTO DIFF Stat Comprehensive Metabolic Panel Stat Lipase Stat 09/03/21 00:23 CT abdomen pelvis w con Stat Discontinued Medications Ketorolac Tromethamine (Ketorolac 30 Mg/Ml Vial) 15 mg IV NOW ONE Stop: 09/03/21 00:24 Last Admin: 09/03/21 00:42 Dose: 15 mg Documented by: DULCE Vital Signs Vital signs: Vital Signs - 8 hr 09/02/21 23:25 09/03/21 02:15 Temperature 98.7 F Pulse Rate 81 76 Respiratory Rate 15 17 Blood Pressure 109/69 109/63 Pulse Oximetry 98 97 MDM - Abdominal Pain Lab Data Result diagrams: 09/03/21 00:20 09/03/21 00:20 Labs: Lab Results 09/03/21 09/03/21 Range/Units 00:20 00:20 WBC 7.7 (4.5-11.0) X10^3/uL RBC 3.66 L (4.0-5.2) X10^6/uL Hgb 11.7 L (12.0-16.0) g/dL Hct 33.9 L (36-46) % MCV 92.7 (80-100) fL MCH 32.0 (26-34) PG MCHC 34.5 (30-36) % RDW 12.3 (11.6-14.8) % Plt Count 282 (150-400) X10^3/uL Neut % (Auto) 59.7 (50-75) % Lymph % (Auto) 24.9 L (25-40) % Brooks % (Auto) 11.9 (3-14) % Eos % (Auto) 3.1 (2-4) % Baso % (Auto) 0.4 (0-2) % Neut # (Auto) 4600 (7369-1029) /uL Lymph # (Auto) 1900 (3399-1924) /uL Brooks # (Auto) 900 (0-900) /uL Eos # (Auto) 200 (0-450) /uL Baso # (Auto) 0 (0-100) /uL Sodium 139 (137-145) mmol/L Potassium 3.7 (3.4-5.1) mmol/L Chloride 106 (98-107) mmol/L Carbon Dioxide 25 (22-32) mmol/L BUN 22 H (7-17) mg/dL Creatinine 0.82 (0.52-1.04) mg/dL Estimated GFR > 60.0 (>60) mL/min BUN/Creatinine Ratio 26.8 H (6-22) Glucose 95 (70-100) mg/dL Calcium 9.1 (8.4-10.2) mg/dL Total Bilirubin 0.3 (0.2-1.3) mg/dL AST 17 (14-36) IU/L ALT 14 (<35) IU/L Alkaline Phosphatase 96 (38-126) U/L Total Protein 7.0 (6.3-8.2) g/dL Albumin 4.2 (3.5-5.0) g/dL Globulin 2.8 (1.7-4.1) g/dL Albumin/Globulin Ratio 1.5 (1.0-2.8) Lipase 197 (23-300) U/L Point of care testing: Urine Dip Bedside Urine Glucose Negative Bedside Urine Bilirubin - Negative Bedside Urine Ketone - Negative Urine Specific Whitney 1.025 Bedside Urine Occult Blood - Negative Bedside Urine pH 6.0 Bedside Urine Protein - Negative Bedside Urine Urobilinogen - Negative Bedside Urine Nitrite - Negative Bedside Urine Leukocytes - Negative Esterase Imaging Data CT scan - abdomen/pelvis: Radiologist's Impression: PROCEDURE:? CT ABDOMEN PELVIS W CON ? INDICATIONS:? left flank pain recent hysterectomy ? TECHNIQUE:? After the administration of intravenous contrast, axial sections acquired from t he lung bases to the pubic symphysis.? Coronal and sagittal reformats were performed.? For radiation dose reduction, the following was used:? automated exposure control, adjustment of mA and/or kV according to patient size.? ? COMPARISON:? None. ? FINDINGS:? Image quality:? Excellent.? ? Lung bases:? Unremarkable. Heart:? No significant findings. ? ABDOMEN: Liver:? Unremarkable.? ? Gallbladder:? Cholelithiasis noted in a contracted gallbladder.? No pericholecystic fluid. Biliary ducts:? Unremarkable.? ? Pancreas:? Unremarkable.? ? Spleen:? Unremarkable.? ? Adrenal Glands:? Unremarkable.? ? Kidneys and Ureters:? Unremarkable.? ? ? Stomach and Bowel:? Stomach, small bowel loops, and colon are unremarkable.? Appendectomy.? No obstruction. Peritoneum:? No abnormal intraperitoneal fluid.? No free air.? ? Ventral Wall: ? No hernias.? Abdominal Nodes:? No retroperitoneal or mesenteric adenopathy by size criteria.? Vessels:? Aorta and inferior vena cava are normal in size.? ? PELVIS: Pelvic Organs:? There has been a partial hysterectomy of the uterine fundus.? Lower uterine segment and 2cervix noted.? No evidence of abscess or hematoma. Bladder:? Unremarkable.? ? Pelvic Nodes: No enlarged lymph nodes.? Miscellaneous:? Small periumbilical hernia contains fat without bowel involvement9 ? Bones:? Unremarkable.? IMPRESSION:? ? 1. Partial hysterectomy without evidence of complication, abscess or hematoma.? No free air. 2. Cholelithiasis and contracted gallbladder. ? ? Dictated by: Jac Herzog M.D. on 09/03/2021 at 1:34 ? ? Approved by: Jac Herzog M.D. on 09/03/2021 at 1:43 ? MDM Narrative Medical decision making narrative: Patient blood work is overall reassuring. CT does not show any complication from surgery no evidence of kidney stone or constipation or bowel obstruction. No clear cause of pain at this time. Pain is better controlled with Toradol. At this time recommend outpatient follow-up. Discharge Plan Departure Patient Disposition: Home Clinical Impression: Acute flank pain Instructions: DI for Abdominal Pain-Adult Activity Restrictions/Additional Instructions: *You have been diagnosed with abdominal pain/flank pain *What to do: Blood work and CT scan are overall reassuring. No evidence of kidney stone constipation or complication from hysterectomy. At this time recommend follow-up with MOTTLER OPERATOR. *Continue to take medications as directed *Follow up with your primary care provider in 2-3 days *Return to ER if you should have increasing pain, fever, any new, worsening or concerning symptoms Prescriptions: No Action Vitamin D3 4,000 UNIT capsule 4,000 u PO DAILY Qty: 0 0RF fluoxetine [Prozac] 10 mg capsule 30 mg PO DAILY 0RF L.acidoph, paracasei,B. lactis [Digestive Advantage Advanced] 1 PO DAILY 0RF omega 1-ake-pze-fish oil [Fish Oil] 1,000 mg (120 mg-180 mg) Capsule 1 cap PO DAILY 0RF tramadol 50 mg tablet 50 mg PO Q4H PRN (Reason: pain) Qty: 20 0RF Referrals: Jyoti Lopes MD [Physician] - Rina Rose ARNP [Primary Care Provider] -
--- NOTE | 2021-09-03 00:23 | DI.CT.S_ITS ---
PROCEDURE: CT ABDOMEN PELVIS W CON INDICATIONS: left flank pain recent hysterectomy TECHNIQUE: After the administration of intravenous contrast, axial sections acquired from the lung bases to the pubic symphysis. Coronal and sagittal reformats were performed. For radiation dose reduction, the following was used: automated exposure control, adjustment of mA and/or kV according to patient size. COMPARISON: None. FINDINGS: Image quality: Excellent. Lung bases: Unremarkable. Heart: No significant findings. ABDOMEN: Liver: Unremarkable. Gallbladder: Cholelithiasis noted in a contracted gallbladder. No pericholecystic fluid. Biliary ducts: Unremarkable. Pancreas: Unremarkable. Spleen: Unremarkable. Adrenal Glands: Unremarkable. Kidneys and Ureters: Unremarkable. Stomach and Bowel: Stomach, small bowel loops, and colon are unremarkable. Appendectomy. No obstruction. Peritoneum: No abnormal intraperitoneal fluid. No free air. Ventral Wall: No hernias. Abdominal Nodes: No retroperitoneal or mesenteric adenopathy by size criteria. Vessels: Aorta and inferior vena cava are normal in size. PELVIS: Pelvic Organs: There has been a partial hysterectomy of the uterine fundus. Lower uterine segment and 2cervix noted. No evidence of abscess or hematoma. Bladder: Unremarkable. Pelvic Nodes: No enlarged lymph nodes. Miscellaneous: Small periumbilical hernia contains fat without bowel involvement9 Bones: Unremarkable. IMPRESSION: 1. Partial hysterectomy without evidence of complication, abscess or hematoma. No free air. 2. Cholelithiasis and contracted gallbladder. Dictated by: Jac Herzog M.D. on 09/03/2021 at 1:34 Approved by: Jac Herzog M.D. on 09/03/2021 at 1:43
[2021-09-03 00:30] LABS: Add Manual Diff / Slide Review NO; Basophils Absolute Auto 0 /uL (0-100); Basophils Percent Auto 0.4 % (0-2); Eosinophils Absolute Auto 200 /uL (0-450); Eosinophils Percent Auto 3.1 % (2-4); Hematocrit 33.9 % (36-46); Hemoglobin 11.7 g/dL (12.0-16.0); Lymphocytes Absolute Auto 1900 /uL (1100-4500); Lymphocytes Percent Auto 24.9 % (25-40); Mean Corpuscular HGB Conc 34.5 % (30-36); Mean Corpuscular Volume 92.7 fL (80-100); Monocytes Absolute Auto 900 /uL (0-900); Monocytes Percent Auto 11.9 % (3-14); Neutrophils Absolute Auto 4600 /uL (1500-7000); Neutrophils Percent Auto 59.7 % (50-75); Platelet Count 282 X10^3/uL (150-400); Red Blood Cell Count 3.66 X10^6/uL (4.0-5.2); Red Cell Distribution Width 12.3 % (11.6-14.8); White Blood Cell Count 7.7 X10^3/uL (4.5-11.0)
[2021-09-03 00:39] LABS: Alanine Aminotransferase 14 IU/L (<35); Albumin 4.2 g/dL (3.5-5.0); Albumin Globulin Ratio 1.5 (1.0-2.8); Alkaline Phosphatase 96 U/L (38-126); Aspartate Aminotransferase 17 IU/L (14-36); BUN Creatinine Ratio 26.8 (6-22); Bilirubin Total 0.3 mg/dL (0.2-1.3); Blood Urea Nitrogen 22 mg/dL (7-17); Calcium 9.1 mg/dL (8.4-10.2); Carbon Dioxide 25 mmol/L (22-32); Chloride 106 mmol/L (98-107); Estimated Glomerular Filt Rate > 60.0 mL/min (>60); Globulin 2.8 g/dL (1.7-4.1); Glucose 95 mg/dL (70-100); HEMOLYSIS < 15 (0-50); Lipase 197 U/L (23-300); Potassium 3.7 mmol/L (3.4-5.1); Sodium 139 mmol/L (137-145)
[2021-09-03] MEDS: KETOROLAC 30 MG/ML VIAL 15 MG IV (00:42)
[2021-09-03 02:15] VITALS: BP 109/63; PULSE 76; RESP 17; O2SAT 97
== END 2021-09-03 02:17 | disposition home or self-care (01) ==
PROVIDERS: Emergency Provider Emergency Medicine; PCP Internal Medicine
DX: R10.9 Unspecified abdominal pain (principal); Z98.890 Other specified postprocedural states
CPT/HCPCS: 36415; 74177; 80053; 81003; 83690; 85025; 96374; 99284; J1885; Q9967

== ENCOUNTER 2022-03-20 07:35 | Emergency (ER) | payer OTHER, SELFPAY ==
--- NOTE | 2022-03-20 07:41 | ED_ITS ---
HPI - Eye Problem General Chief complaint: Eye Problems Stated complaint: eye infection Time Seen by Provider: 03/20/22 07:41 Source: patient Mode of arrival: Ambulatory Limitations: no limitations History of Present Illness HPI Narrative: This is a 41-year-old female comes emergency department with complaint of about 4 days of right eyelid irritation, redness thickening. Patient states minimal to no drainage, none that she is appreciated at the eyelashes, no pain or discomfort in the eye itself. The eye has not been injected. Patient states that she stopped using her mascara on her eyes 4 days ago. She does not normally use any other makeup. She has continued to use normal moisturizer. She has not had any other new changes. She notes very slight change on the left but initially started with the right. Patient has not had similar symptoms in the past. She takes medication for anxiety but no other daily medications. Has not any prior eczema or other skin issues. She did go swimming week ago but has not had any other exposures. She is allergic to sulfa and oxycodone. Related Data Home Medications Medication Instructions Recorded Confirmed cholecalciferol (vitamin D3) 100 4,000 u PO DAILY ##0 09/28/16 09/29/21 mcg (4,000 unit) capsule (Vitamin D3) omega 9-rfw-gjc-fish oil 1,000 mg 1 cap PO DAILY 08/13/20 09/29/21 (120 mg-180 mg) capsule (Fish Oil) L.acidoph, paracasei,B. lactis 1 PO DAILY 08/16/21 09/29/21 [Digestive Advantage Advanced] fluoxetine 10 mg capsule (Prozac) 30 mg PO DAILY 08/16/21 09/29/21 Previous Rx's Medication Instructions Recorded tramadol 50 mg tablet 50 mg PO Q4H PRN pain #20 tabs 08/17/21 estradiol 10 mcg vaginal tablet 10 mcg vaginal 2XW #24 tabs 10/28/21 (Yuvafem) clindamycin HCl 300 mg capsule 300 mg PO QID #28 caps 03/20/22 erythromycin 5 mg/gram (0.5 %) eye 0.5 inch EYE-RIGHT Q6H #3.5 grams 03/20/22 ointment Allergies Allergy/AdvReac Type Severity Reaction Status Date / Time latex [LATEX] Allergy Mild Rash Verified 09/29/21 07:55 oxycodone [From PERCOCET] Allergy Mild hives, Verified 09/29/21 07:55 itching Sulfa (Sulfonamide Allergy Mild Rash Verified 09/29/21 07:55 Antibiotics) Review of Systems Review of Systems ROS Unobtainable: All systems reviewed & are unremarkable except as noted in HPI and below Patient History Medical History Anemia Cystitis Dysmenorrhea Menorrhagia Otitis media, serous, TM rupture UTI (urinary tract infection) Surgical History History of surgery (~08/2005) History of surgery (05/2013) Hx of appendectomy (~2006) Hx of bilateral salpingectomy (10/07/19) Hx of hemorrhoidectomy (08/19/20) Family History Father Cancer Grandfather Heart disease Grandmother Heart disease Mother Age: 73 Diabetes mellitus Hypertension High cholesterol Mental health problem Grandfather Heart disease Grandmother Stroke Social History household members: spouse and children Smoking Status: Never smoker alcohol intake: current Smoking Status: Never smoker alcohol intake frequency: a few times a week Substance Use Type: does not use Exam Narrative Exam Narrative: GEN: well nourished, well appearing female, alert and oriented x 3, patient appears to be in mild distress. HEENT: Atraumatic, pupils are equal round reactive to light, extraocular movements are intact, patient has slight swelling of the right upper lid, left lid has a slight erythema in the crease but no thickening, or swelling appreciated. Some erythema at the crease but no drainage or fluid collection or weeping at the eyelashes, nares are clear, TMs are clear with no fluid, there is no conjunctival pallor. General: no globe trauma Conjunctiva/Sclera: normal inspection Corneas: normal inspection EOM: intact, no palsy/entrapment Pupils: PERRL, normal accomadation, pupil normal Anterior Chambers: normal inspection, no hypema Posterior: normal fundoscopic bilaterally. HEART: Regular rate and rhythm without murmur, clicks, rubs. LUNGS:Lungs clear to auscultation, no wheezes, rales, crackles, chest moves symmetrically ABD:bowel sounds normal, soft, non-tender, no guarding, rebound, rigidity, no masses noted, no hepatosplenomegaly MSCL:muscles strength 5/5 upper and lower extremities, full range of motion, normal gait NEURO:CN 2-12 intact, sensation normal SKIN: No other rash or skin changes appreciated. Initial Vital Signs Initial Vital Signs: Vital Signs Temperature 97.2 F L 03/20/22 07:43 Pulse Rate 93 H 03/20/22 07:43 Respiratory Rate 16 03/20/22 07:43 Blood Pressure 111/72 03/20/22 07:43 Pulse Oximetry 97 03/20/22 07:43 Oxygen Delivery Method 03/20/22 07:43 Course Orders Ordered: Discontinued Medications Clindamycin HCl (Clindamycin 150 Mg Capsule) 300 mg PO NOW ONE Stop: 03/20/22 08:00 Last Admin: 03/20/22 08:03 Dose: 300 mg Documented By: HEATHER Vital Signs Vital signs: Vital Signs - 8 hr 03/20/22 07:43 Temperature 97.2 F L Pulse Rate 93 H Respiratory Rate 16 Blood Pressure 111/72 Pulse Oximetry 97 Oxygen Delivery Method Room Air Discharge Plan Departure Patient Disposition: Home Clinical Impression: Cellulitis of right eyelid Instructions: DI for Cellulitis -- Adult Activity Restrictions/Additional Instructions: Follow up with your physician if symptoms have not resolved in a week. Take oral antibiotics until completely gone. Can use topical erythromycin 4 times daily to the affected area. You can use cool compresses to the affected area regularly. You may take Tylenol and/or ibuprofen as needed for discomfort. Prescription sent to [email or web address] in [place] Please return for fevers rapidly worsening swelling, redness or pain, pain, redness or signs of infection of the eye itself or other new or concerning symptoms. Prescriptions: New clindamycin HCl 300 mg capsule 300 mg PO QID Qty: 28 0RF erythromycin 5 mg/gram (0.5 %) ointment 0.5 inch EYE-RIGHT Q6H Qty: 3.5 0RF No Action Vitamin D3 4,000 UNIT capsule 4,000 u PO DAILY Qty: 0 estradiol [Yuvafem] 10 mcg tablet 10 mcg vaginal 2XW Qty: 24 3RF fluoxetine [Prozac] 10 mg capsule 30 mg PO DAILY L.acidoph, paracasei,B. lactis [Digestive Advantage Advanced] 1 PO DAILY omega 4-asb-lig-fish oil [Fish Oil] 1,000 mg (120 mg-180 mg) Capsule 1 cap PO DAILY tramadol 50 mg tablet 50 mg PO Q4H PRN (Reason: pain) Qty: 20 0RF Referrals: Rina Rose ARNP [Primary Care Provider] - Visit Report Forms: Patient Portal/API
[2022-03-20 07:43] VITALS: BP 111/72; PULSE 93; RESP 16; TEMP 36.2; O2SAT 97; BMI 29.1
[2022-03-20] MEDS: CLINDAMYCIN 150 MG CAPSULE 300 MG PO (08:03)
== END 2022-03-20 08:13 | disposition home or self-care (01) ==
PROVIDERS: Emergency Provider Emergency Medicine; PCP Internal Medicine
DX: H00.033 Abscess of eyelid right eye, unspecified eyelid (principal)
CPT/HCPCS: 99283

== ENCOUNTER → 2022-07-15 16:40 | Outpatient (CLI) | payer OTHER, SELFPAY ==
--- NOTE | 2022-07-15 | DI.MG.S_ITS ---
BILATERAL DIGITAL SCREENING MAMMOGRAM 3D/2D WITH CAD: 07/15/2022 CLINICAL: Routine screening. Baseline exam. No prior exams were available for comparison. Both breasts are heterogeneously dense, which may obscure small masses (category c / 51-75% glandular tissue). Current study was also evaluated with a Computer Aided Detection (CAD) system. No significant masses, calcifications, or other findings are seen in either breast. IMPRESSION: NEGATIVE There is no mammographic evidence of malignancy. A 1 year screening mammogram is recommended. Based on the Tyrer Cuzick model (a risk assessment model) the patient's lifetime risk is 9.7% and her 10 year risk is 1.2%. According to the ACR, ACS, and NCCN guidelines, an annual breast MRI exam along with mammogram is recommended if the patient's lifetime risk is 20% or greater. This exam was interpreted at Station ID: [id number]. NOTE: For mammograms, a report in lay terms will be sent to the patient. Approximately 15% of breast malignancies will not be visualized mammographically. In the management of a palpable breast mass, a negative mammogram must not discourage biopsy of a clinically suspicious lesion. Electronically Signed By: Malcolm mcclure/fazal:07/16/2022 12:39:42 letter sent: Normal Exam ACR BI-RADS Category 1: Negative [id number]
== END ==
PROVIDERS: PCP Internal Medicine; Referring Provider Internal Medicine; Visit Provider Internal Medicine
DX: Z12.31 Encounter for screening mammogram for malignant neoplasm of breast (principal)
CPT/HCPCS: 77063; 77067

== ENCOUNTER → 2022-07-28 16:37 | Outpatient (CLI) | payer OTHER, SELFPAY | PROVIDERS: PCP Internal Medicine; Referring Provider Internal Medicine; Visit Provider Internal Medicine | DX: Z23 Encounter for immunization (principal) | CPT/HCPCS: 90471; 90686 ==

== ENCOUNTER → 2023-07-13 03:15 | Outpatient (CLI) | payer OTHER, SELFPAY | PROVIDERS: PCP Internal Medicine; Referring Provider Family Medicine; Visit Provider Family Medicine | DX: Z23 Encounter for immunization (principal) | CPT/HCPCS: 90471; 90686 ==

== ENCOUNTER → 2023-07-27 15:49 | Outpatient (CLI) | payer OTHER, SELFPAY ==
--- NOTE | 2023-07-27 | DI.MG.S_ITS ---
BILATERAL DIGITAL SCREENING MAMMOGRAM 3D/2D WITH CAD: 07/27/2023 CLINICAL: Routine screening. Comparison is made to exam dated: 07/15/2022 mammogram - [facility]. Both breasts are heterogeneously dense, which may obscure small masses (category c / 51-75% glandular tissue). Current study was also evaluated with a Computer Aided Detection (CAD) system. No significant masses, calcifications, or other findings are seen in either breast. There has been no significant interval change. IMPRESSION: NEGATIVE There is no mammographic evidence of malignancy. A 1 year screening mammogram is recommended. Based on the Tyrer Cuzick model (a risk assessment model) the patient's lifetime risk is 10.2% and her 10 year risk is 1.4%. According to the ACR, ACS, and NCCN guidelines, an annual breast MRI exam along with mammogram is recommended if the patient's lifetime risk is 20% or greater. This exam was interpreted at Station ID: [id number]. NOTE: For mammograms, a report in lay terms will be sent to the patient. Approximately 15% of breast malignancies will not be visualized mammographically. In the management of a palpable breast mass, a negative mammogram must not discourage biopsy of a clinically suspicious lesion. Electronically Signed By: Malcolm mcclure/fazal:07/28/2023 11:54:33 letter sent: Normal Exam ACR BI-RADS Category 1: Negative [id number]
== END ==
PROVIDERS: PCP Internal Medicine; Referring Provider Internal Medicine; Visit Provider Internal Medicine
DX: Z12.31 Encounter for screening mammogram for malignant neoplasm of breast (principal)
CPT/HCPCS: 77063; 77067

== ENCOUNTER → 2024-08-03 07:55 | Outpatient (CLI) | payer OTHER, SELFPAY ==
--- NOTE | 2024-08-03 07:57 | DI.MG.S_ITS ---
BILATERAL DIGITAL SCREENING MAMMOGRAM 3D/2D WITH CAD: 08/03/2024 CLINICAL: Routine screening. Comparison is made to exams dated: 07/27/2023 mammogram and 07/15/2022 mammogram - [facility]. The breasts are heterogeneously dense, which may obscure small masses (category c / 51-75% glandular tissue). Current study was also evaluated with a Computer Aided Detection (CAD) system. There is an asymmetry in the left breast middle depth central to the nipple seen on the craniocaudal view only. No other significant masses, calcifications, or other findings are seen in either breast. IMPRESSION: INCOMPLETE: NEED ADDITIONAL IMAGING EVALUATION The asymmetry in the left breast is indeterminate. Additional views with possible ultrasound are recommended. Based on the Tyrer Cuzick model (a risk assessment model) the patient's lifetime risk is 10.4% and her 10 year risk is 1.5%. According to the ACR, ACS, and NCCN guidelines, an annual breast MRI exam along with mammogram is recommended if the patient's lifetime risk is 20% or greater. This exam was interpreted at Station ID: [id number]. NOTE: For mammograms, a report in lay terms will be sent to the patient. Approximately 15% of breast malignancies will not be visualized mammographically. In the management of a palpable breast mass, a negative mammogram must not discourage biopsy of a clinically suspicious lesion. Electronically Signed By: Stoney pérez/fazal:08/05/2024 11:48:47 letter sent: Additional Imaging Needed ACR BI-RADS Category 0: Incomplete: Need Additional Imaging Evaluation
== END ==
LOC: MAMMO 07:56
PROVIDERS: PCP Internal Medicine; Referring Provider Internal Medicine; Visit Provider Internal Medicine
DX: Z12.31 Encounter for screening mammogram for malignant neoplasm of breast (principal); R92.333 Mammographic heterogeneous density, bilateral breasts
CPT/HCPCS: 77063; 77067

== ENCOUNTER → 2024-08-28 12:44 | Outpatient (CLI) | payer OTHER, SELFPAY ==
--- NOTE | 2024-08-28 12:45 | DI.MG.S_ITS ---
UNILATERAL LEFT DIGITAL DIAGNOSTIC MAMMOGRAM 3D/2D WITH ADDITIONAL VIEWS: 08/28/2024 CLINICAL: Additional evaluation requested from prior study. Comparison is made to exams dated: 07/27/2023 mammogram, 08/03/2024 mammogram, and 07/15/2022 mammogram - [facility]. The breasts are heterogeneously dense, which may obscure small masses (category c / 51-75% glandular tissue). The finding seen on recent screening mammogram did not persist with additional imaging and is consistent with superimposition of normal breast tissue. No significant masses, calcifications, or other findings are seen in the breast. IMPRESSION: NEGATIVE Superimposition of normal breast tissue. No mammographic evidence of malignancy. A 1 year screening mammogram is recommended. Findings and recommendations were conveyed to the patient during today's evaluation. Based on the Tyrer Cuzick model (a risk assessment model) the patient's lifetime risk is 10.4% and her 10 year risk is 1.5%. According to the ACR, ACS, and NCCN guidelines, an annual breast MRI exam along with mammogram is recommended if the patient's lifetime risk is 20% or greater. This exam was interpreted at Station ID: [id number]. NOTE: For mammograms, a report in lay terms will be sent to the patient. Approximately 15% of breast malignancies will not be visualized mammographically. In the management of a palpable breast mass, a negative mammogram must not discourage biopsy of a clinically suspicious lesion. Electronically Signed By: Ciera Castelan M.D., Ph.D. eb/:08/28/2024 13:37:05 letter sent: Normal Exam ACR BI-RADS Category 1: Negative
== END ==
LOC: MAMMO 12:44
PROVIDERS: PCP Internal Medicine; Referring Provider Internal Medicine; Visit Provider Internal Medicine
DX: R92.8 Other abnormal and inconclusive findings on diagnostic imaging of breast (principal); R92.333 Mammographic heterogeneous density, bilateral breasts
CPT/HCPCS: 77065; G0279

== ENCOUNTER → 2024-12-31 14:53 | Outpatient (CLI) | payer OTHER, SELFPAY ==
--- NOTE | 2025-01-06 13:53 | DIET.CONS ---
Addendum entered by Zamzam Gillespie 01/06/25 14:16: Consult date 12/31/24 Original Note: Dietary Consultation Note Assessment: 44 y F referred to dietitian for obesity. Pt presents for review of current dietary pattern. On semaglutide with total of 6 lb weight loss since start on 08/28/24. Reports chronic constipation that is managed with metamucil and stool softer, with this has daily BMs. Upset stomach if consumes milk or ice cream. Diet recall: 8am: oatmeal or toast and eggs or yogurt 2 cups coffee/day Noon-hot meal at hospital cafeteria snack: cookie or sweet 5-6p: dinner: meat, rice/potatoes, green veggie Around 60 oz water Activity: just joined gym planning to go 3x/wk for class Weight: 179 lb, starting weight on 08/28/24: 185 lb Nutrition Diagnosis: Altered nutrition related labs values (cholesterol, HDL) r/t energy dense sweet snack and physical inactivity aeb cholesterol 205, HDL 38 Interventions: -Balanced meals and snacks in line with myplate, Mediterranean style of eating -Portion sizing -Education on label reading -Intuitive eating principals/practice -Assessing hunger/fullness level -Fiber, amounts, types -Physical activity -Lab values and correlation with nutrition Goals: Switch afternoon snack with prepped veggies (non-starchy) and protein source (low fat cheese, pb, hummus) Gym 3x/wk EER: 25-28 g fiber/day Monitoring/Evaluations: f/u in 2 months Electronically Signed by: Zamzam Gillespie 01/06/25 13:53 Clinical Dietitian [address] [id number]
== END ==
PROVIDERS: PCP Registered Nurse; Referring Provider Registered Nurse
DX: E66.9 Obesity, unspecified (principal); Z79.85 Long-term (current) use of injectable non-insulin antidiabetic drugs; K59.09 Other constipation
CPT/HCPCS: 97802